=== PATIENT | female | born 1990 | race Caucasian/White ===

== ENCOUNTER 2017-01-13 03:25 | Inpatient (IN) ==
[2017-01-13] MEDS ORDERED: DILAUDID IV ONE ×2 (03:54→08:40)
[2017-01-13] MEDS ORDERED: NS 1,000 ML IV ONE (03:54)
[2017-01-13] MEDS ORDERED: ZOFRAN IV ONE (03:54)
[2017-01-13] MEDS ORDERED: TORADOL IV ONE (03:54)
--- NOTE | 2017-01-13 04:08 | PROVIDER DOCUMENTATION ---
HPI-Abdominal Pain/GI Problem - General Chief Complaint: Abdominal Pain Stated Complaint: ABD PAIN Time Seen by Provider: 01/13/17 03:38 Source: patient Allergies/Adverse Reactions: Patient Allergies Allergy/AdvReac Type Severity Reaction Status Date / Time tramadol HCl * [From [facility]] Allergy Intermediate ITCHING Verified 07/23/14 15: 16 Home Medications: Home Medication List Medication Instructions Recorded Confirmed Last Taken Type Unobtainable [Home Meds 01/13/17 01/13/17 Unknown History Unobtainable] - History of Present Illness-ABD Nature of Presenting Problems: pt reports epigastric pain since yesterday morning. Then tonight she was awakened by mid back pain and much worse epigastric pain and several episodes of vomiting. No fever or chills. No dysuria or diarrhea. Review of Systems - Adult - REVIEW OF SYSTEMS - ADULT Constitutional: denies: chills, fever Eyes: denies: discharge Ears, Nose, Mouth & Throat: denies: ear pain, sinus problem, throat pain Cardiovascular: denies: chest pain Respiratory: denies: cough, shortness of breath Gastrointestinal: reports: see HPI, abdominal pain, nausea, vomiting. denies: hematemesis, diarrhea, rectal bleeding Genitourinary: denies: dysuria, flank pain Musculoskeletal: reports: back pain. denies: muscle aches Integumentary: denies: rash Neurological: denies: headache/migraines Psychiatric: reports: no symptoms reported Endocrine: reports: no symptoms reported Hematologic/Lymphatic: reports: no symptoms reported Allergic/Immunologic: reports: no symptoms reported All Other Systems: Reviewed and Negative Past History - Adult - PAST MEDICAL HISTORY-ADULT Review of Records: reports: Old Records Reviewed, Nursing Assessment Review, Medications Reviewed, Social history reviewed & non-contributory. Obstetrical/Gynecological: reports: ovarian cysts - PRIOR SURGERIES/PROCEDURES Surgical/Procedure History: reports: BTL, tonsillectomy - IMMUNIZATION STATUS Childhood Immunizations: See Nurse Assessment Flu Vaccine: See Nurse Assessment - FAMILY HISTORY Family History: reviewed, not pertinent - SOCIAL HISTORY Smoking: denies Substance Use: alcohol (rarely) Living Situation: family Physical Exam-General - PHYSICAL EXAM-ADULT Initial Vital Signs Reviewed: Yes - CONSTITUTIONAL General Appearance: appears well, alert, no apparent distress - EYES Eyes: pink conjunctivae. negative: scleral icterus - HEAD, EARS, NOSE, MOUTH & THROAT HENMT: normocephalic/atraumatic, pharynx normal - NECK Neck: non-tender, full range of motion, supple, normal inspection - RESPIRATORY Respiratory: chest non-tender, lungs clear, normal breath sounds, no pleuratic chest pain, no respiratory distress, no accessory muscle use - CARDIOVASCULAR Cardiovascular: regular rate, rhythm, no murmur - GASTROINTESTINAL (ABDOMEN) Abdominal Exam: normal bowel sounds, soft, no organomegaly, no pulsatile mass, tenderness (moderate RUQ and epigastric), Lorenz's sign. negative: non tender, distended, guarding, rigid, rebound, hernia, mass, hepatomegaly, spleenomegaly, McBurney's point tenderness, obturator sign, prominent aortic pulsations - MUSCULOSKELETAL Back Exam: normal inspection, no vertebral tenderness, CVA tenderness (mild right). negative: no CVA tenderness - SKIN Integumentary: normal color, normal turgor, warm/dry - NEUROLOGIC Neurologic: grossly normal, no motor/sensory deficits - PSYCHIATRIC Psych/Mental Status: normal mood/affect, normal thought content, normal thought process, oriented x 3 Progress - PLAN OF CARE/RESULTS Progress/Plan/Lab Results: Vital Signs - 8 hr 01/13/17 03:30 Temperature 98.2 F Pulse Rate 95 H Respiratory Rate 18 Blood Pressure 134/72 O2 Sat by Pulse Oximetry 100 Orders Category Date Time Status CBC WITH ELECTRONIC DIFF [HEME] Stat Lab 01/13/17 03:49 Ordered CMP [COMPREHENSIVE METABOLIC PANEL] [CHEM] Stat Lab 01/13/17 03:49 Ordered LIPASE [CHEM] Stat Lab 01/13/17 03:49 Ordered TEST-SERUM [PREG] Stat Lab 01/13/17 03:50 Ordered ua [URINALYSIS PL W/POSS RFLX CULT] [URINALYSIS] Stat Lab 01/13/17 03:57 Ordered 0.9% Sodium Chloride Inj [Ns] 1,000 ml Med 01/13/17 03:54 Active IV 999 mls/hr Hydromorphone [Dilaudid] Med 01/13/17 03:54 Discontinued 1 mg IV NOW ONE Ketorolac [Toradol] Med 01/13/17 03:54 Discontinued 30 mg IV NOW ONE Ondansetron [Zofran] Med 01/13/17 03:54 Discontinued 4 mg IV NOW ONE Result Diagrams: 01/13/17 03:57 01/13/17 03:57 - REASSESSMENT Reassessment #1 Time Reassessed: 04:40 (pt feels much better) Status: improving Reassessment #2 Time Reassessed: 08:28 Status: unchanged Reassessment Comment: Discussed the GB US with positive for gallstones. Surgery consult. - CONSULTS/PCP/HOSPITALIST Notification #1 *Consult/PCP/Hospitalist*: Call placed to Dr. Landers who is in [facility] and will call back. Time Discussed: 08:41 #2 Consult: Dr. Landers Time Discussed: 09:09 Reason/Comments: Transfer to [facility] Departure - Departure Date of Disposition Decision: 01/13/17 Time of Disposition Decision: 09:09 DIAGNOSIS: Cholelithiasis Disposition: [place] [id number] Certified Medical Emergency: Emergent Condition: Stable Additional Freetext Instructions: Discussed with the patient. Referrals and Follow-Ups: Samm Meza [Primary Care Provider] - - Critical Care Note This patient required my direct & personal management of CC.: No
[2017-01-13 04:17] LABS: BASO% 0.2 % (0.0-0.8); EOS# 0.13 X1000 (0.0-0.7); EOS% 0.8 % (0.0-10.0); HEMATOCRIT 42.8 % (37.0-47.0); HEMOGLOBIN 14.3 g/dL (12.0-16.0); IMM GRAN# 0.05 X1000 (0.0-0.04); IMM GRAN% 0.3 % (0.0-0.5); LYMPH# 1.11 X1000 (1.2-3.4); LYMPH% 6.5 % (20.5-51.1); MANUAL DIFF NEEDED? NO; MCH 29.4 PG (27-31); MCHC 33.4 g/dL (33-37); MCV 87.9 FL (81-99); MONO# 0.79 X1000 (0.11-0.59); MONO% 4.6 % (1.7-9.3); MPV 8.9 FL (7.4-10.4); NEUT% 87.6 % (42.2-75.2); PLT 331 X1000 (130-400); RBC 4.87 XMIL (4.2-5.4)
[2017-01-13 04:18] LABS: BILIRUBIN URINE NEGATIVE (NEGATIVE); BLOOD URINE NEGATIVE (NEGATIVE); CLARITY VERY CLOUDY (CLEAR); COLOR YELLOW; GLUCOSE URINE NEGATIVE (NEGATIVE); LEUKOCYTES URINE TRACE (NEGATIVE); NITRITE URINE NEGATIVE (NEGATIVE); PROTEIN URINE NEGATIVE (NEGATIVE); SP GRAVITY URINE 1.015; UROBILINOGEN URINE NORMAL
[2017-01-13 04:40] LABS: URINE RBC <10 /HPF (<10); URINE WBC <10 /HPF (<10)
[2017-01-13 04:42] LABS: URINE EPITHELIAL CELLS <10 /HPF (<10)
[2017-01-13 04:43] LABS: URINE CULTURE PL NEEDED? YES; URINE SOURCE CLEAN CATCH
[2017-01-13 04:48] LABS: AGAP 12; ALBUMIN 4.1 g/dL (3.5-5.0); ALKALINE PHOSPHATASE 118 U/L (32-104); BUN 9 mg/dL (8-22); CALCIUM 9.2 mg/dL (8.8-10.2); CHLORIDE 102 mmol/L (98-107); COSMO 278; GOT 133 U/L (10-30); GPT 68 U/L (10-36); LIPASE 22 U/L (13-60); POTASSIUM 3.4 mmol/L (3.5-5.1); SODIUM 139 mmol/L (136-145); TCO2 26 mmol/L (25-35); TOTAL PROTEIN 7.2 g/dL (6.3-8.3)
--- NOTE | 2017-01-13 08:15 | Diag Imaging Result Doc PS360 ---
EXAM: US GB < RUQ (LIMITED) HISTORY: ruq pain, increased LFT's TECHNIQUE: COMPARISON: None. FINDINGS: Normal pancreatic head and body. A portion pancreatic tail is obscured. Normal aorta and inferior vena cava. No focal hepatic abnormality. Normal right kidney except for a 6 mm cyst. No hydronephrosis. There are multiple small stones within the gallbladder. The gallbladder wall is not thickened. The common bile duct measures 4 mm. No ascites. IMPRESSION: 1.Cholelithiasis 2.Small right renal cyst Electronically signed by Kenan Watts 01/13/2017 8:12 AM
[2017-01-13] MEDS ORDERED: PHENERGAN IV ONE (08:40)
[2017-01-13] MEDS ORDERED: SODIUM CHLORIDE 0.9% INJ ONE (08:40)
[2017-01-13] MEDS ORDERED: ZOSYN 3.375 GM/NS 3.375 GM/50 ML IVPB IV ONE ×2 (08:59→16:45)
[2017-01-13] MEDS ORDERED: DILAUDID IM PRN (09:03)
[2017-01-13] MEDS ORDERED: ZOFRAN IV PRN (11:49)
[2017-01-13] MEDS: LR 1,000 ML IV SCH ×2 (13:10→20:23)
[2017-01-13] MEDS: ZOFRAN IV PRN ×2 (13:15→18:53)
[2017-01-13] MEDS: MORPHINE IV PRN ×2 (13:15→18:53)
[2017-01-13] MEDS ORDERED: ZOSYN 3.375 GM/NS 3.375 GM/50 ML IVPB IV SCH (15:00)
[2017-01-13] MEDS ORDERED: XYLOCAINE-MPF 2% ONE (15:45)
[2017-01-13] MEDS ORDERED: QUELICIN (DOSE) ONE (15:45)
[2017-01-13] MEDS ORDERED: ROBINUL ONE ×2 (15:45→16:31)
[2017-01-13] MEDS ORDERED: DIPRIVAN 1% ONE (15:45)
[2017-01-13] MEDS ORDERED: LR 1,000 ML ONE (15:47)
[2017-01-13] MEDS ORDERED: MARCAINE 0.25% PF/EPI 1:200,000 ONE (15:47)
[2017-01-13] MEDS ORDERED: SODIUM CHLORIDE 0.9% ONE (15:47)
[2017-01-13] MEDS ORDERED: DECADRON ONE (16:31)
[2017-01-13] MEDS ORDERED: ZOFRAN ONE (16:31)
[2017-01-13] MEDS ORDERED: NEOSTIGMINE ONE (16:33)
[2017-01-13] MEDS ORDERED: ZEMURON ONE (16:34)
[2017-01-13] MEDS ORDERED: FENTANYL ONE (16:37)
[2017-01-13] MEDS ORDERED: GLUCAGON ONE (17:01)
[2017-01-13] MEDS ORDERED: STERILE WATER INJ. ONE (17:02)
--- NOTE | 2017-01-13 17:09 | HISTORY AND PHYSICAL ---
DATE OF ADMISSION: 01/13/2017 HISTORY OF PRESENT ILLNESS: This is a 26-year-old female with a several month history of colicky right upper quadrant abdominal pain. Says these attacks usually resolve spontaneously after short period of time however this 1 started approximately some point last night, persisted, became more unrelenting with some fevers, nausea, vomiting associated. She went to the emergency department. Ultrasound shows cholelithiasis. She has got a mild leukocytosis concern for cholecystitis. PAST MEDICAL HISTORY: Negative. SURGICAL HISTORY: Tubal ligation, tonsillectomy. SOCIAL HISTORY: No tobacco, alcohol, or drugs. She lives in [place]. She is unemployed. FAMILY HISTORY: Negative for cancer. REVIEW OF SYSTEMS: Ten point negative other what is mentioned HPI. PHYSICAL EXAMINATION: Vital Signs: Temperature is 98 degrees, pulse 62, blood pressure 124/65, oxygen saturation 99% on room air. General: She is alert, in no acute distress. HEENT: No scleral icterus. Cardiovascular: Normal rate, regular rhythm. Pulmonary: No increased work of breathing. Abdomen: Soft. Mild focal tenderness right upper quadrant. No rebound. No guarding. Integument: Otherwise warm, dry without jaundice. Extremities: No lower extremity edema, extremities are well perfused. LABORATORY: White blood cell count 17, hematocrit 42, platelets 331,000. Creatinine 0.7, glucose 133, bilirubin 0.8, AST, ALT 133, 68, alkaline phosphatase 118, lipase normal at 22, test negative. Urinalysis, trace white blood cells but otherwise unrevealing. ASSESSMENT/PLAN: 26-year-old white female with gallstones, leukocytosis and elevation of her liver function tests concerning for cholecystitis, her exam consistent. Risks, benefits, alternatives discussed with patient including bleeding, infection, bile leak, damage to other structures including the common bile duct, possibility of leaving a drain and she consents to laparoscopic cholecystectomy with cholangiogram. Will plan to go today as the operating room allows otherwise she is on IV antibiotics and will continue to monitor and potential we may have to do this tomorrow. cc: Sadie Landers MD
[2017-01-13] MEDS ORDERED: MORPHINE ONE (18:02)
[2017-01-13] MEDS ORDERED: BENADRYL IV PRN (19:00)
[2017-01-14] MEDS: MORPHINE IV PRN ×2 (00:34→09:11)
[2017-01-14] MEDS: PERIDEX MT SCH ×2 (01:53→09:04)
--- NOTE | 2017-01-14 04:05 | OPERATIVE NOTE ---
PROCEDURE DATE: 01/13/2017 PREOPERATIVE DIAGNOSES: Acute cholecystitis with cholelithiasis. POSTOPERATIVE DIAGNOSIS: Acute cholecystitis with cholelithiasis. PROCEDURE PERFORMED: Laparoscopic cholecystectomy with intraoperative cholangiogram. ESTIMATED BLOOD LOSS: 10 mL. SPECIMENS: Gallbladder. INDICATION: This is a 26-year-old female with colicky, intermittent right upper quadrant pain for several months. She developed a more severe episode that was unrelenting with a white count elevation of transaminases. Cholecystectomy was indicated as ultrasound showed gallstones. OPERATIVE FINDINGS: There was acute on chronic inflammation. The gallbladder was distended. There was a prominent cystic artery in the usual location within a large Calot's lymph node and an easily established critical view with normal appearing cystic duct. INTERPRETATION OF INTRAOPERATIVE CHOLANGIOGRAM: Rapid flow of contrast through a small to moderate length cystic duct into a prominent common bile duct but no obvious dilation here. There was rapid flow down until the contrast did seem to hang up but then passed in the duodenum. There were 2 filling defects noted. It was unclear if these were air bubbles or not. We attempted to flush initially, failed to resolve these. It did not appear to be completely blocking. As such, we placed the patient in steep reverse Trendelenburg. Administered glucagon and after several minutes, these did seem to float upwards, consistent with an air bubble, and resolved and were no longer visualized at the conclusion. Summary, overall normal-appearing cholangiogram. OPERATIVE NOTE: Risks, benefits, and alternatives were discussed with the patient. She consented to the procedure. She was seen preoperatively and surgery to be performed was confirmed. She was taken to the operating room, placed in the supine position. General anesthesia was induced without complication. Preincisional antibiotics were administered. Her abdomen was prepped with chlorhexidine solution and draped in the usual fashion. After a time-out was performed, a curvilinear infraumbilical incision was made, dissecting down to the level of the fascia. The fascia was elevated. After entering the abdomen, we placed a 12 mm Wayne trocar under direct visualization and insufflated the abdomen to 15 mmHg. We then placed 3 trocars, 5 mm, after infiltration of the peritoneum, 1 in the epigastrium, 1 in the midclavicular line off the costal margin, and 1 more laterally. Then, using a locking grasper, we grasped the gallbladder and retracted it cephalad. There were some omental adhesions up. We took this down bluntly and without difficulty. Starting laterally and progressing medially, we started stripping down the peritoneum. There was a large cystic artery that coursed through here and entered directly in the gallbladder. We doubly clipped this and divided. This facilitated our exposure. We dissected out the cystic duct, establishing the critical view of safety with liver visualized through this and no other tubular structures behind this. Placed a clip on the gallbladder side, made a ductotomy, performed the cholangiogram with the above findings. After satisfactory final images of the cholangiogram, after multiple maneuvers, we triply clipped the cystic duct and divided this. We then removed the gallbladder from the gallbladder fossa. It was quite intrahepatic and very adherent but we did this without rupturing the gallbladder. We obtained hemostasis in the gallbladder fossa as we went. Irrigated the abdomen. We placed the gallbladder in an EndoCatch bag. Inspected the cystic artery and cystic duct stump. They were both well closed with no bleeding or bile leakage noted. Then again inspected the liver bed, lowered the pressure to ensure there was no bleeding. There was not. Brought the trocars out under direct visualization. They were hemostatic. Deflated the abdomen and brought the gallbladder out through the umbilical incision. Closed the fascia with interrupted 0 Vicryl sutures. Skin was closed with 4-0 Monocryl. Dermabond was applied. Counts correct x2. No identified complications. She had no family here with her. cc: Sadie Landers MD
[2017-01-14] MEDS: LR 1,000 ML IV SCH (05:23)
[2017-01-14] MEDS: TYLENOL PO PRN ×2 (06:34→12:39)
--- NOTE | 2017-01-14 07:51 | Diag Imaging Result Doc PS360 ---
OPERATIVE CHOLANGIOGRAM - 01/13/2017 INDICATION: GALLBLADDER TECHNIQUE: The exam was performed by the patient's surgeon. One image was submitted. COMPARISON: None FINDINGS: Contrast was infused into the cystic duct. There is a normal common bile duct. There is good flow of contrast into the duodenum. IMPRESSION: Negative exam. Electronically signed by Efren Marshall 01/14/2017 7:49 AM
[2017-01-14 10:50] VITALS: BP 106/55
== END 2017-01-14 14:33 | disposition home or self-care (01) ==
LOC: P.ED 03:25 → 4N 09:35
PROVIDERS: ADMIT Surgery; ATTEND Surgery